=== PATIENT | female | born 1980 | race Caucasian/White ===

== ENCOUNTER 2017-02-21 16:00 | Emergency (ER) | payer OTHER ==
--- NOTE | 2017-02-21 16:36 | EDPHY ---
H & P Stated Complaint: constipation for 36 hrs/suppository is not working/hx IBS Time Seen by Provider: 02/21/17 16:23 HPI/ROS: CHIEF COMPLAINT: Constipation HISTORY OF PRESENT ILLNESS: Patient is a 37-year-old female with a history of IBS on dicyclomine as well as hemorrhoids and on Eliquis for history of DVTs. She comes to the emergency department complaining of constipation. She states that 2 weeks ago she had diarrhea for 7 days. Since the diarrhea. She has only had 2 bowel movements this week. Her last bowel movement was 36 hours ago. She states that she typically has a bowel movement every other day or every 3rd day. She can feel a ball of feces in her rectum. She has not had a fever. No vomiting. No abdominal pain. No urinary complaints. No bleeding. REVIEW OF SYSTEMS: Constitutional: denies: chills, fever, recent illness, recent injury EENTM: denies: blurred vision, double vision, nose congestion Respiratory: denies: cough, shortness of breath Cardiac: denies: chest pain, irregular heart rate, lightheadedness, palpitations Gastrointestinal/Abdominal: See HPI Genitourinary: denies: dysuria, frequency, hematuria, pain Musculoskeletal: denies: joint pain, muscle pain Skin: denies: lesions, rash, jaundice, bruising Neurological: denies: headache, numbness, paresthesia, tingling, dizziness, weakness Hematologic/Lymphatic: denies: blood clots, easy bleeding, easy bruising Immunologic/allergic: denies: HIV/AIDS, transplant EXAM: GENERAL: Obese and in no acute distress. HEAD: Atraumatic, normocephalic. EYES: Pupils equal round and reactive to light, extraocular movements intact, sclera anicteric, conjunctiva are normal. ENT: TMs normal, nares patent, oropharynx clear without exudates. Moist mucous membranes. NECK: Normal range of motion, supple without lymphadenopathy or JVD. LUNGS: Breath sounds clear to auscultation bilaterally and equal. No wheezes rales or rhonchi. HEART: Regular rate and rhythm without murmurs, rubs or gallops. ABDOMEN: Soft, nontender, normoactive bowel sounds. No guarding, no rebound. No masses appreciated. BACK: No CVA tenderness, no spinal tenderness, step-offs or deformities EXTREMITIES: Normal range of motion, no pitting or edema. No clubbing or cyanosis. NEUROLOGICAL: Cranial nerves II through XII grossly intact. Normal speech, normal gait. 5/5 strength, normal movement in all extremities, normal sensation PSYCH: Normal mood, normal affect. SKIN: Warm, dry, normal turgor, no visible rashes or lesions. Source: Patient Exam Limitations: No limitations - Personal History LMP (Females 10-55): Now Current Tetanus/Diphtheria Vaccine: Yes - Medical/Surgical History Hx Asthma: No Hx Chronic Respiratory Disease: No Hx Diabetes: No Hx Cardiac Disease: No Hx Renal Disease: No Hx Cirrhosis: No Hx Alcoholism: No Hx HIV/AIDS: No Hx Splenectomy or Spleen Trauma: No Other PMH: IBS/thoracic outlet synderome/rib resection - Family History Significant Family History: No pertinent family hx - Social History Smoking Status: Never smoked Alcohol Use: Sober Drug Use: None Constitutional: Initial Vital Signs Temperature (C) 36.4 C 02/21/17 16:09 Heart Rate 106 H 02/21/17 16:09 Respiratory Rate 20 02/21/17 16:09 Blood Pressure 126/90 H 02/21/17 16:09 O2 Sat (%) 95 02/21/17 16:09 O2 Delivery Mode Room Air Allergies/Adverse Reactions: Penicillins Allergy (Verified 02/21/17 16:07) Sulfa (Sulfonamide Antibiotics) Allergy (Verified 02/21/17 16:07) Home Medications: Medication Instructions Recorded Dicyclomine 02/21/17 Eliquis 02/21/17 LYRICA 02/21/17 Topamax 02/21/17 Zanaflex 02/21/17 Zomig 02/21/17 traZODone 02/21/17 Medical Decision Making ED Course/Re-evaluation: The patient is requesting a soapsuds enema. 5:20 p.m. the patient had successful bowel movement after soapsuds enema. We also discussed MiraLax to take as needed. She may do this over the counter. She declines further workup or testing at this time. Her abdominal exam is benign. Differential Diagnosis: Partial list of the Differential diagnosis considered include but were not limited to; constipation, obstruction and although unlikely based on the history and physical exam, I also considered urinary tract infection, , stone. I discussed these differential diagnoses and the plan with the patient as well as the usual and expected course. The patient understands that the diagnosis is provisional and that in medicine we are not always correct and that further workup is often warranted. Usual and customary warnings were given. All of the patient's questions were answered. The patient was instructed to return to the emergency department should the symptoms at all worsen or return, otherwise to followup with the physician as we discussed. Departure - Departure Disposition: Home, Routine, Self-Care Clinical Impression: Constipation Qualifiers: Constipation type: unspecified constipation type Qualified Code(s): K59.00 - Constipation, unspecified Condition: Fair Instructions: Constipation (ED) Additional Instructions: Titrate MiraLax over the counter as needed for constipation. Referrals: LUCINDA ZARAGOZA [Other] - As per Instructions
[2017-02-21 17:36] VITALS: BP 125/80; PULSE 92; RESP 18; TEMP 98.6; O2SAT 98
== END 2017-02-21 17:35 | disposition home or self-care (01) ==
DX: K59.00 Constipation, unspecified (principal)